=== PATIENT | male | born 1960 | race Caucasian/White ===

== ENCOUNTER 2019-07-16 00:44 | Inpatient (IN) | payer MEDICAID ==
[~2019-07-16] VITALS: Ht 165.1 cm; Wt 103.7 kg
[~2019-07-16 00:44] MED LIST: ASPI-831 PO; ASPI325T32 PO; ATOR20TA38 PO; BENA20TA65 PO; DOCU-144 PO; ENOX40DI2 SC; Folic Acid PO; HYDR-3498 PO; LANT3I SC; METF500T24 PO; METO-429 PO; MULTI PO; Metformin Hcl PO; PANT40TA4 PO; Thiamine Hcl PO
[2019-07-16 00:52] VITALS: Ht 165.1 cm; Wt 103.7 kg
[2019-07-16] MEDS ORDERED: AL HYDROX/MG HYDROX/SIMETH 30 ML CUP PO ONE (03:00)
[2019-07-16] MEDS ORDERED: ASPIRIN 325 MG TAB PO STA (03:48)
[2019-07-16] MEDS ORDERED: ENOXAPARIN 100 MG/ML SYG SC ONE (04:00)
[2019-07-16] MEDS ORDERED: DOCUSATE SODIUM 100 MG CAP PO PRN ×2 (04:30)
[2019-07-16] MEDS ORDERED: NACL 0.9% 3 ML SYG IV SCH (04:30)
[2019-07-16] MEDS ORDERED: ONDANSETRON 4 MG INJ IV PRN (04:30)
[2019-07-16] MEDS ORDERED: NITROGLYCERIN (SL) 0.4 MG TAB SL PRN (04:30)
[2019-07-16] MEDS ORDERED: ACETAMINOPHEN 325 MG TAB PO PRN (04:30)
[2019-07-16] MEDS ORDERED: HYDROCODONE/APAP (5/325) TAB PO PRN (04:30)
[2019-07-16] MEDS ORDERED: BISACODYL (EC) 5 MG TAB PO PRN (04:30)
[2019-07-16] MEDS ORDERED: DEXTROSE 50% 50 ML SYRINGE IV PRN ×2 (06:30)
[2019-07-16] MEDS ORDERED: GLUCOSE GEL 15 GRAM TUBE PO PRN ×2 (06:30)
[2019-07-16] MEDS ORDERED: GLUCOSE GEL 15 GRAM TUBE BUCCAL PRN (06:30)
[2019-07-16] MEDS ORDERED: GLUCAGON 1 MG INJ IM PRN (06:30)
[2019-07-16 08:05] VITALS: BP 108/80; PULSE 87; RESP 18
[2019-07-16] MEDS: INSULIN ASPART [NOVOLOG] 3 ML PEN SC SCH ×4 (09:00→20:11)
[2019-07-16] MEDS ORDERED: THIAMINE HCL 100 MG PO SCH (09:00)
[2019-07-16] MEDS ORDERED: FOLIC ACID 1 MG PO SCH (09:00)
[2019-07-16] MEDS: ASPIRIN 81 MG TAB PO SCH (09:58)
[2019-07-16 12:03] VITALS: BP 133/71; PULSE 72; RESP 18
[2019-07-16] MEDS: THIAMINE 100 MG TAB PO SCH (13:59)
[2019-07-16] MEDS: FOLIC ACID 1 MG TAB PO SCH (13:59)
[2019-07-16] MEDS: BENAZEPRIL 20 MG TAB PO SCH (13:59)
[2019-07-16 15:54] VITALS: BP 99/56; PULSE 65; RESP 18
[2019-07-16] MEDS ORDERED: ENOXAPARIN 60 MG/0.6 ML SYG SC SCH (16:00)
[2019-07-16] MEDS ORDERED: ENOXAPARIN 100 MG/ML SYG SC SCH (16:00)
[2019-07-16] MEDS: PANTOPRAZOLE (EC) 40 MG TAB PO SCH (19:55)
[2019-07-16] MEDS: ATORVASTATIN 20 MG TAB PO SCH ×2 (19:55→20:11)
[2019-07-16] MEDS: SOD CHLORIDE 0.9% 1,000 ML IV SCH ×2 (19:57→20:10)
[2019-07-16 20:01] VITALS: BP 116/62; PULSE 67; RESP 19
[2019-07-16] MEDS: ISOSORBIDE DINITRATE 10 MG TAB PO SCH (20:11)
[2019-07-17] VITALS (11 sets, daily range): BP systolic 113–146; BP diastolic 57–79; PULSE 62–89; RESP 16–22
[2019-07-17] MEDS: INSULIN ASPART [NOVOLOG] 3 ML PEN SC SCH ×4 (01:23→13:00)
[2019-07-17] MEDS ORDERED: ACCU-CHEK XX SCH (02:00)
[2019-07-17] MEDS: PANTOPRAZOLE (EC) 40 MG TAB PO SCH (06:03)
[2019-07-17] MEDS ORDERED: DIAZEPAM 5 MG TAB PO ONE (07:30)
[2019-07-17] MEDS ORDERED: DIPHENHYDRAMINE 50 MG CAP PO ONE (07:30)
[2019-07-17] MEDS: THIAMINE 100 MG TAB PO SCH (08:49)
[2019-07-17] MEDS: BENAZEPRIL 20 MG TAB PO SCH (08:49)
[2019-07-17] MEDS: ASPIRIN 81 MG TAB PO SCH (08:50)
[2019-07-17] MEDS: FOLIC ACID 1 MG TAB PO SCH (08:50)
[2019-07-17] MEDS: ISOSORBIDE DINITRATE 10 MG TAB PO SCH ×3 (08:50→20:07)
[2019-07-17] MEDS ORDERED: LIDOCAINE 1% (MDV) 20 ML INJ ONE (11:49)
[2019-07-17] MEDS ORDERED: IODIXANOL LOCM 100 ML BTL ONE (11:49)
[2019-07-17] MEDS ORDERED: HEPARIN 1000 UNITS/ML 10 ML INJ ONE (11:49)
[2019-07-17] MEDS ORDERED: NITROGLYCERIN (IC) 100 MCG/ML INJ ONE (11:50)
[2019-07-17] MEDS ORDERED: FENTAnyl 50 MCG/ML VIAL ONE (11:50)
[2019-07-17] MEDS ORDERED: VERAPAMIL 5 MG INJ ONE (11:50)
[2019-07-17] MEDS ORDERED: MIDAZOLAM 1 MG/ML 2 ML INJ ONE (11:50)
[2019-07-17] MEDS ORDERED: SOD CHLORIDE 0.9% 1,000 ML IV SCH (13:02)
[2019-07-17] MEDS: Insulin NOVOLOG SS MILD Algorithm (SS with meals and bedtime) SC SCH ×2 (17:19→20:09)
[2019-07-17] MEDS ORDERED: INSULIN ASPART [NOVOLOG] 3 ML PEN SC SCH (17:25)
[2019-07-17] MEDS: ATORVASTATIN 20 MG TAB PO SCH (20:06)
[2019-07-17] MEDS: ACCUCHECK AT 2AM (Patients on SS coverage) XX SCH (23:54)
[2019-07-18] VITALS: BP 127/58; PULSE 72; RESP 15
[2019-07-18 04:00] VITALS: BP 137/72; PULSE 71; RESP 18
[2019-07-18] MEDS: PANTOPRAZOLE (EC) 40 MG TAB PO SCH (05:08)
[2019-07-18 07:57] VITALS: BP 142/75; PULSE 73; RESP 20
[2019-07-18] MEDS: Insulin NOVOLOG SS MILD Algorithm (SS with meals and bedtime) SC SCH ×4 (08:15→21:45)
[2019-07-18] MEDS: ASPIRIN 81 MG TAB PO SCH (08:19)
[2019-07-18] MEDS: BENAZEPRIL 20 MG TAB PO SCH (08:20)
[2019-07-18] MEDS: FOLIC ACID 1 MG TAB PO SCH (08:20)
[2019-07-18] MEDS: ISOSORBIDE DINITRATE 10 MG TAB PO SCH ×3 (08:20→21:41)
[2019-07-18] MEDS: THIAMINE 100 MG TAB PO SCH (08:20)
[2019-07-18 16:18] VITALS: BP 160/79; PULSE 71; RESP 22
[2019-07-18 19:42] VITALS: BP 154/82; PULSE 65; RESP 20
[2019-07-18] MEDS: METOPROLOL 25 MG TAB PO SCH (21:40)
[2019-07-18] MEDS: ATORVASTATIN 20 MG TAB PO SCH (21:41)
[2019-07-19] VITALS: BP 136/69; PULSE 73; RESP 20
[2019-07-19] MEDS: ACCUCHECK AT 2AM (Patients on SS coverage) XX SCH (01:17)
[2019-07-19 04:00] VITALS: BP 129/65; PULSE 67; RESP 20
[2019-07-19] MEDS: PANTOPRAZOLE (EC) 40 MG TAB PO SCH (06:02)
[2019-07-19 07:21] VITALS: BP 132/77; PULSE 66; RESP 20
[2019-07-19] MEDS: BENAZEPRIL 20 MG TAB PO SCH (08:07)
[2019-07-19] MEDS: METOPROLOL 25 MG TAB PO SCH ×2 (08:07→21:51)
[2019-07-19] MEDS: ASPIRIN 81 MG TAB PO SCH (08:07)
[2019-07-19] MEDS: THIAMINE 100 MG TAB PO SCH (08:07)
[2019-07-19] MEDS: ISOSORBIDE DINITRATE 10 MG TAB PO SCH ×3 (08:07→21:51)
[2019-07-19] MEDS: FOLIC ACID 1 MG TAB PO SCH (08:07)
[2019-07-19] MEDS: Insulin NOVOLOG SS MILD Algorithm (SS with meals and bedtime) SC SCH ×4 (08:08→21:00)
[2019-07-19 12:00] VITALS: BP 136/68; PULSE 72; RESP 20
[2019-07-19 15:33] VITALS: BP 138/73; PULSE 64; RESP 20
[2019-07-19 19:50] VITALS: BP 150/77; PULSE 65; RESP 20
[2019-07-19] MEDS: ATORVASTATIN 20 MG TAB PO SCH (21:51)
[2019-07-20] VITALS (39 sets, daily range): BP systolic 92–180; BP diastolic 48–83; PULSE 62–111; RESP 12–22; TEMP 96.7–101.1
[2019-07-20] MEDS: ACCUCHECK AT 2AM (Patients on SS coverage) XX SCH (01:53)
[2019-07-20] MEDS: PANTOPRAZOLE (EC) 40 MG TAB PO SCH (06:10)
[2019-07-20] MEDS ORDERED: EPINEPHrine 4 MG in DEXTROSE 5% 246 ML IV SCH (06:30)
[2019-07-20] MEDS ORDERED: PHENYLephrine 20MG IN 250 ML 250 ML IV SCH (06:30)
[2019-07-20] MEDS ORDERED: INSULIN HUMAN REGULAR 100 UNIT in SOD CHLORIDE 0.9% 99 ML IV SCH (06:30)
[2019-07-20] MEDS ORDERED: DOPamine-D5W 1.6 MG/ML 250 ML ONE (07:00)
[2019-07-20] MEDS ORDERED: ISOFLURANE 15 MIN ONE (07:00)
[2019-07-20] MEDS ORDERED: INSULIN REGULAR, HUMAN 100 UNIT/1 ML 3ML VIAL ONE (07:00)
[2019-07-20] MEDS ORDERED: NITROGLYCERIN 50 MG/D5W 250 ML BTL ONE (07:00)
[2019-07-20] MEDS ORDERED: MILRINONE LACTATE 20 MG/D5W 100 ML BAG ONE (07:00)
[2019-07-20] MEDS: Insulin NOVOLOG SS MILD Algorithm (SS with meals and bedtime) SC SCH ×3 (07:05→17:05)
[2019-07-20] MEDS ORDERED: VANCOMYCIN 1 GM INJ ONE (07:22)
[2019-07-20] MEDS ORDERED: HEPARIN 1000 UNITS/ML 10 ML INJ ONE ×4 (07:22→10:09)
[2019-07-20] MEDS ORDERED: PAPAVERINE 60 MG INJ ONE (07:22)
[2019-07-20] MEDS ORDERED: SOD CHLORIDE 0.9% 1,000 ML IV SCH (07:30)
[2019-07-20] MEDS ORDERED: MIDAZOLAM 5 ML ONE ×2 (07:42→09:54)
[2019-07-20] MEDS ORDERED: LIDOCAINE 100 MG SYRINGE ONE (07:47)
[2019-07-20] MEDS ORDERED: AMINOCAPROIC ACID 5 GM INJ ONE ×3 (07:47→11:29)
[2019-07-20] MEDS ORDERED: PHENYLephrine 10 MG INJ ONE (07:47)
[2019-07-20] MEDS ORDERED: MAGNESIUM SULFATE (MG) 50% 10 ML INJ ONE (07:47)
[2019-07-20] MEDS ORDERED: POTASSIUM CHLORIDE 40 MEQ INJ ONE (07:47)
[2019-07-20] MEDS ORDERED: CA CHLORIDE 10% 10 ML SYRINGE ONE (07:49)
[2019-07-20] MEDS ORDERED: NA BICARBONATE 8.4% 50 ML SYG ONE (07:49)
[2019-07-20] MEDS ORDERED: ALBUMIN HUMAN 25% 200 ML ONE (07:49)
[2019-07-20] MEDS ORDERED: MANNITOL 25% 100 ML ONE (07:49)
[2019-07-20] MEDS ORDERED: CEFAZOLIN 1 GM INJ ONE ×2 (08:47→11:29)
[2019-07-20] MEDS: ISOSORBIDE DINITRATE 10 MG TAB PO SCH ×3 (09:00→22:13)
[2019-07-20] MEDS: ASPIRIN 81 MG TAB PO SCH (09:00)
[2019-07-20] MEDS: FOLIC ACID 1 MG TAB PO SCH (09:00)
[2019-07-20] MEDS: METOPROLOL 25 MG TAB PO SCH ×2 (09:00→21:36)
[2019-07-20] MEDS: THIAMINE 100 MG TAB PO SCH (09:00)
[2019-07-20] MEDS: BENAZEPRIL 20 MG TAB PO SCH (09:00)
[2019-07-20] MEDS ORDERED: FUROSEMIDE 20 MG INJ ONE (10:39)
[2019-07-20] MEDS ORDERED: PROTAMINE 250 MG INJ ONE (12:39)
[2019-07-20] MEDS ORDERED: ETOMIDATE 20 MG INJ ONE (12:39)
[2019-07-20] MEDS ORDERED: ROCURONIUM 50 MG INJ ONE ×2 (12:39)
[2019-07-20] MEDS ORDERED: LIDOCAINE 2% (SDV) 5 ML INJ ONE (12:39)
[2019-07-20] MEDS ORDERED: MAGNESIUM SULFATE 2 GM/50 ML 50 ML IVPB ONE (14:00)
[2019-07-20] MEDS ORDERED: MEPERIDINE 25 MG INJ IV PRN (14:30)
[2019-07-20] MEDS ORDERED: LORAZEPAM 2 MG INJ IV PRN (14:30)
[2019-07-20] MEDS ORDERED: hydrALAzine 20 MG INJ ONE (14:30)
[2019-07-20] MEDS ORDERED: morphine 2 MG INJ IV PRN ×2 (14:30)
[2019-07-20] MEDS ORDERED: hydrALAzine 20 MG INJ IV PRN (14:30)
[2019-07-20] MEDS ORDERED: METOCLOPRAMIDE 10 MG INJ IV PRN (14:30)
[2019-07-20] MEDS ORDERED: DIPHENHYDRAMINE 50 MG INJ IV PRN (14:30)
[2019-07-20] MEDS ORDERED: FENTAnyl 50 MCG/ML VIAL IV PRN (14:30)
[2019-07-20] MEDS ORDERED: ONDANSETRON 4 MG INJ IV PRN (14:30)
[2019-07-20] MEDS ORDERED: PROPOFOL 100 ML ONE (14:51)
[2019-07-20] MEDS: morphine 2 MG INJ IV PRN ×2 (14:56→20:54)
[2019-07-20] MEDS ORDERED: DOPamine-D5W 1.6 MG/ML 250 ML IV SCH (15:00)
[2019-07-20] MEDS ORDERED: NITROGLYCERIN 50 MG/D5W (PMX) 250 ML IV SCH ×3 (15:00)
[2019-07-20] MEDS: PROPOFOL 100 ML IV SCH (15:15)
[2019-07-20] MEDS: POTASSIUM CHLORIDE 50 ML IVPB PRN ×2 (15:17→16:20)
[2019-07-20] MEDS ORDERED: MAGNESIUM SULFATE 2 GM/50 ML 50 ML IVPB PRN (15:30)
[2019-07-20] MEDS: POTASSIUM CHLORIDE 40 MEQ, CALCIUM CHLORIDE 10% 1 GM in DEXTROSE 5%-0.225% NACL 1,000 ML IV SCH (17:46)
[2019-07-20] MEDS ORDERED: INSULIN HUMAN REGULAR 100 UNIT in SOD CHLORIDE 0.9% 99 ML IV STA (18:59)
[2019-07-20] MEDS: ACCU-CHEK XX SCH ×5 (19:00→23:14)
[2019-07-20] MEDS ORDERED: DEXTROSE 50% 50 ML SYRINGE IV PRN ×2 (19:00)
[2019-07-20] MEDS: INSULIN HUMAN REGULAR 100 UNIT in SOD CHLORIDE 0.9% 99 ML IV SCH (20:01)
[2019-07-20] MEDS: ATORVASTATIN 20 MG TAB PO SCH (21:36)
[2019-07-20] MEDS: ACETAMINOPHEN 325 MG TAB PO PRN (22:13)
[2019-07-20] MEDS: ONDANSETRON 4 MG INJ IV PRN (22:38)
[2019-07-20] MEDS: OXYCODONE/ACETAMINOPHEN (5/325) TAB PO PRN (23:30)
[2019-07-21] VITALS (66 sets, daily range): BP systolic 78–139; BP diastolic 42–84; PULSE 74–96; RESP 11–26; TEMP 98.4–100.8
[2019-07-21] MEDS ORDERED: PHENYLephrine 20MG IN 250 ML 250 ML IV SCH (00:30)
[2019-07-21] MEDS: POTASSIUM CHLORIDE 50 ML IVPB PRN (01:06)
[2019-07-21] MEDS: ACCU-CHEK XX SCH ×24 (01:12→22:56)
[2019-07-21] MEDS: ACCUCHECK AT 2AM (Patients on SS coverage) XX SCH (02:00)
[2019-07-21] MEDS: PROPOFOL 100 ML IV SCH (03:00)
[2019-07-21] MEDS: OXYCODONE/ACETAMINOPHEN (5/325) TAB PO PRN ×2 (06:01→17:18)
[2019-07-21] MEDS: PANTOPRAZOLE (EC) 40 MG TAB PO SCH (06:01)
[2019-07-21] MEDS: ALBUMIN HUMAN 5% 250 ML IV SCH ×2 (06:03→07:04)
[2019-07-21] MEDS: ONDANSETRON 4 MG INJ IV PRN (07:09)
[2019-07-21] MEDS: THIAMINE 100 MG TAB PO SCH (08:43)
[2019-07-21] MEDS: FOLIC ACID 1 MG TAB PO SCH (08:43)
[2019-07-21] MEDS: ASPIRIN 81 MG TAB PO SCH (08:43)
[2019-07-21] MEDS: ISOSORBIDE DINITRATE 10 MG TAB PO SCH ×3 (09:00→22:06)
[2019-07-21] MEDS: ACETAMINOPHEN 325 MG TAB PO PRN (09:07)
[2019-07-21] MEDS: morphine 2 MG INJ IV PRN (09:30)
[2019-07-21] MEDS ORDERED: TRIMETHOBENZAMIDE 100 MG/ML VIAL IM PRN (10:00)
[2019-07-21] MEDS: POTASSIUM CHLORIDE 40 MEQ, CALCIUM CHLORIDE 10% 1 GM in DEXTROSE 5%-0.225% NACL 1,000 ML IV SCH (10:23)
[2019-07-21] MEDS ORDERED: ONDANSETRON 4 MG INJ IV PRN (10:30)
[2019-07-21] MEDS ORDERED: ONDANSETRON INJ 8 MG in SOD CHLORIDE 0.9% 50 ML IV PRN ×4 (10:30)
[2019-07-21] MEDS: METOPROLOL 25 MG TAB PO SCH ×2 (10:49→20:59)
[2019-07-21] MEDS: INSULIN HUMAN REGULAR 100 UNIT in SOD CHLORIDE 0.9% 99 ML IV SCH (17:32)
[2019-07-21] MEDS: ATORVASTATIN 20 MG TAB PO SCH (20:59)
[2019-07-22] VITALS (24 sets, daily range): BP systolic 108–157; BP diastolic 64–83; PULSE 78–102; RESP 12–22
[2019-07-22] MEDS: morphine 2 MG INJ IV PRN ×3 (00:31→20:04)
[2019-07-22] MEDS: ACCU-CHEK XX SCH ×12 (01:07→11:00)
[2019-07-22] MEDS: ACCUCHECK AT 2AM (Patients on SS coverage) XX SCH (02:00)
[2019-07-22] MEDS: POTASSIUM CHLORIDE 40 MEQ, CALCIUM CHLORIDE 10% 1 GM in DEXTROSE 5%-0.225% NACL 1,000 ML IV SCH (05:00)
[2019-07-22] MEDS: PANTOPRAZOLE (EC) 40 MG TAB PO SCH (06:20)
[2019-07-22] MEDS: THIAMINE 100 MG TAB PO SCH (09:10)
[2019-07-22] MEDS: ISOSORBIDE DINITRATE 10 MG TAB PO SCH ×3 (09:10→20:16)
[2019-07-22] MEDS: ASPIRIN 81 MG TAB PO SCH (09:10)
[2019-07-22] MEDS: FOLIC ACID 1 MG TAB PO SCH (09:10)
[2019-07-22] MEDS: METOPROLOL 25 MG TAB PO SCH (09:11)
[2019-07-22] MEDS: INSULIN ASPART [NOVOLOG] 3 ML PEN SC SCH ×5 (12:11→20:15)
[2019-07-22] MEDS ORDERED: FUROSEMIDE 40 MG INJ IV ONE (13:00)
[2019-07-22] MEDS ORDERED: hydrALAzine 20 MG INJ IV PRN (13:00)
[2019-07-22] MEDS ORDERED: INSULIN GLARGINE [LANTus] (100 UNITS/ML) SYG SC SCH (20:00)
[2019-07-22] MEDS: ATORVASTATIN 20 MG TAB PO SCH (20:15)
[2019-07-22] MEDS: METOPROLOL 50 MG TAB PO SCH (20:17)
[2019-07-23] VITALS (21 sets, daily range): BP systolic 101–160; BP diastolic 65–87; PULSE 72–89; RESP 12–29
[2019-07-23] MEDS: ACCU-CHEK XX SCH (01:30)
[2019-07-23] MEDS: ACCUCHECK AT 2AM (Patients on SS coverage) XX SCH (01:30)
[2019-07-23] MEDS: PANTOPRAZOLE (EC) 40 MG TAB PO SCH (06:19)
[2019-07-23] MEDS: INSULIN ASPART [NOVOLOG] 3 ML PEN SC SCH ×7 (07:35→20:47)
[2019-07-23] MEDS: THIAMINE 100 MG TAB PO SCH (08:29)
[2019-07-23] MEDS: FUROSEMIDE 40 MG INJ IV SCH (08:29)
[2019-07-23] MEDS: METOPROLOL 50 MG TAB PO SCH ×2 (08:29→20:46)
[2019-07-23] MEDS: FOLIC ACID 1 MG TAB PO SCH (08:29)
[2019-07-23] MEDS: ISOSORBIDE DINITRATE 10 MG TAB PO SCH ×3 (08:30→20:47)
[2019-07-23] MEDS: ASPIRIN 81 MG TAB PO SCH (08:30)
[2019-07-23] MEDS: OXYCODONE/ACETAMINOPHEN (5/325) TAB PO PRN (08:30)
[2019-07-23] MEDS: morphine 2 MG INJ IV PRN (17:55)
[2019-07-23] MEDS: ATORVASTATIN 20 MG TAB PO SCH (20:47)
[2019-07-23] MEDS ORDERED: INSULIN ASPART [NOVOLOG] 3 ML PEN SC ONE (22:00)
[2019-07-23] MEDS ORDERED: ACCU-CHEK XX ONE (22:00)
[2019-07-23] MEDS: INSULIN GLARGINE [LANTus] (100 UNITS/ML) SYG SC SCH (22:33)
[2019-07-24] MEDS: ACCU-CHEK XX SCH (01:56)
[2019-07-24 03:41] VITALS: BP 140/71; PULSE 83; RESP 20
[2019-07-24] MEDS: PANTOPRAZOLE (EC) 40 MG TAB PO SCH (03:54)
[2019-07-24] MEDS: morphine 2 MG INJ IV PRN ×4 (03:55→19:06)
[2019-07-24 07:28] VITALS: BP 137/70; PULSE 81; RESP 16
[2019-07-24] MEDS: INSULIN ASPART [NOVOLOG] 3 ML PEN SC SCH ×7 (08:52→20:47)
[2019-07-24] MEDS: FUROSEMIDE 40 MG INJ IV SCH (08:54)
[2019-07-24] MEDS: ASPIRIN 81 MG TAB PO SCH (08:55)
[2019-07-24] MEDS: FOLIC ACID 1 MG TAB PO SCH (08:55)
[2019-07-24] MEDS: ISOSORBIDE DINITRATE 10 MG TAB PO SCH ×3 (08:55→20:45)
[2019-07-24] MEDS: BENAZEPRIL 5 MG TAB PO SCH (08:55)
[2019-07-24] MEDS: THIAMINE 100 MG TAB PO SCH (08:55)
[2019-07-24] MEDS: METOPROLOL 50 MG TAB PO SCH ×2 (08:55→20:46)
[2019-07-24 12:00] VITALS: BP 125/65; PULSE 73
[2019-07-24 16:00] VITALS: BP 120/63; PULSE 80; RESP 16
[2019-07-24 19:12] VITALS: BP 132/72; PULSE 94; RESP 20
[2019-07-24] MEDS: ATORVASTATIN 20 MG TAB PO SCH (20:45)
[2019-07-24] MEDS: INSULIN GLARGINE [LANTus] (100 UNITS/ML) SYG SC SCH (20:54)
[2019-07-24 23:42] VITALS: BP 137/73; PULSE 74; RESP 22
[2019-07-25] MEDS: morphine 2 MG INJ IV PRN ×4 (02:00→19:04)
[2019-07-25] MEDS: ACCU-CHEK XX SCH (02:00)
[2019-07-25 04:00] VITALS: BP 118/56; PULSE 79; RESP 20
[2019-07-25] MEDS: PANTOPRAZOLE (EC) 40 MG TAB PO SCH (06:42)
[2019-07-25 07:14] VITALS: BP 150/73; PULSE 68; RESP 16
[2019-07-25] MEDS: INSULIN ASPART [NOVOLOG] 3 ML PEN SC SCH ×7 (07:55→20:10)
[2019-07-25] MEDS: FOLIC ACID 1 MG TAB PO SCH (08:24)
[2019-07-25] MEDS: THIAMINE 100 MG TAB PO SCH (08:24)
[2019-07-25] MEDS: ASPIRIN 81 MG TAB PO SCH (08:24)
[2019-07-25] MEDS: METOPROLOL 50 MG TAB PO SCH ×2 (08:25→20:09)
[2019-07-25] MEDS: FUROSEMIDE 40 MG INJ IV SCH (08:25)
[2019-07-25] MEDS: BENAZEPRIL 5 MG TAB PO SCH (08:26)
[2019-07-25] MEDS: ISOSORBIDE DINITRATE 10 MG TAB PO SCH ×3 (08:26→20:09)
[2019-07-25 11:12] VITALS: BP 118/61; PULSE 88; RESP 18
[2019-07-25 15:08] VITALS: BP 148/88; PULSE 88; RESP 18
[2019-07-25] MEDS: ATORVASTATIN 20 MG TAB PO SCH (20:09)
[2019-07-25 20:15] VITALS: BP 173/90; PULSE 85; RESP 19
[2019-07-25 20:30] VITALS: BP 164/87; PULSE 86
[2019-07-25] MEDS: INSULIN GLARGINE [LANTus] (100 UNITS/ML) SYG SC SCH (20:30)
[2019-07-26] VITALS: BP 137/65; PULSE 77; RESP 18
[2019-07-26] MEDS: morphine 2 MG INJ IV PRN ×6 (00:39→22:52)
[2019-07-26] MEDS: ACCU-CHEK XX SCH (02:00)
[2019-07-26 03:50] VITALS: BP 143/77; PULSE 84; RESP 20
[2019-07-26] MEDS: PANTOPRAZOLE (EC) 40 MG TAB PO SCH (05:46)
[2019-07-26 07:36] VITALS: BP 150/76; PULSE 80; RESP 18
[2019-07-26] MEDS: INSULIN ASPART [NOVOLOG] 3 ML PEN SC SCH ×7 (07:55→20:54)
[2019-07-26] MEDS: ISOSORBIDE DINITRATE 10 MG TAB PO SCH ×3 (08:07→20:53)
[2019-07-26] MEDS: METOPROLOL 50 MG TAB PO SCH ×2 (08:07→20:53)
[2019-07-26] MEDS: FOLIC ACID 1 MG TAB PO SCH (08:07)
[2019-07-26] MEDS: THIAMINE 100 MG TAB PO SCH (08:07)
[2019-07-26] MEDS: BENAZEPRIL 5 MG TAB PO SCH (08:07)
[2019-07-26] MEDS: ASPIRIN 81 MG TAB PO SCH (08:07)
[2019-07-26] MEDS: FUROSEMIDE 40 MG INJ IV SCH (08:07)
[2019-07-26 11:53] VITALS: BP 101/56; PULSE 76; RESP 17
[2019-07-26 15:57] VITALS: BP 127/78; PULSE 78; RESP 20
[2019-07-26 19:37] VITALS: BP 149/78; PULSE 80; RESP 19
[2019-07-26] MEDS: ATORVASTATIN 20 MG TAB PO SCH (20:54)
[2019-07-26] MEDS: INSULIN GLARGINE [LANTus] (100 UNITS/ML) SYG SC SCH (21:04)
[2019-07-27] VITALS: BP 137/68; PULSE 79; RESP 18
[2019-07-27] MEDS: ACCU-CHEK XX SCH (02:47)
[2019-07-27] MEDS: morphine 2 MG INJ IV PRN ×2 (03:10→20:30)
[2019-07-27 03:34] VITALS: BP 148/72; PULSE 77; RESP 18
[2019-07-27] MEDS: PANTOPRAZOLE (EC) 40 MG TAB PO SCH (05:38)
[2019-07-27 07:41] VITALS: BP 148/74; PULSE 79; RESP 18
[2019-07-27] MEDS: INSULIN ASPART [NOVOLOG] 3 ML PEN SC SCH ×7 (07:55→20:36)
[2019-07-27] MEDS: OXYCODONE/ACETAMINOPHEN (5/325) TAB PO PRN (08:20)
[2019-07-27] MEDS: FOLIC ACID 1 MG TAB PO SCH (08:20)
[2019-07-27] MEDS: BENAZEPRIL 5 MG TAB PO SCH (08:20)
[2019-07-27] MEDS: METOPROLOL 50 MG TAB PO SCH ×2 (08:21→20:24)
[2019-07-27] MEDS: THIAMINE 100 MG TAB PO SCH (08:21)
[2019-07-27] MEDS: ASPIRIN 81 MG TAB PO SCH (08:21)
[2019-07-27] MEDS: ISOSORBIDE DINITRATE 10 MG TAB PO SCH ×4 (08:21→20:20)
[2019-07-27] MEDS: FUROSEMIDE 40 MG INJ IV SCH (08:22)
[2019-07-27 12:16] VITALS: BP 103/56; PULSE 70; RESP 18
[2019-07-27 15:44] VITALS: BP 159/74; PULSE 73; RESP 18
[2019-07-27] MEDS: ACETAMINOPHEN 325 MG TAB PO PRN (16:44)
[2019-07-27 20:00] VITALS: BP_SYST 139; BP_SYST 148; BP_DIAS 65; BP_DIAS 67; PULSE 81; PULSE 88; RESP 19
[2019-07-27] MEDS: ATORVASTATIN 20 MG TAB PO SCH (20:23)
[2019-07-27] MEDS: INSULIN GLARGINE [LANTus] (100 UNITS/ML) SYG SC SCH (20:35)
[2019-07-28 00:10] VITALS: BP 121/63; PULSE 67; RESP 18
[2019-07-28] MEDS: ACCU-CHEK XX SCH (02:00)
[2019-07-28 04:00] VITALS: BP 143/72; PULSE 73; RESP 19
[2019-07-28] MEDS: PANTOPRAZOLE (EC) 40 MG TAB PO SCH (06:20)
[2019-07-28 07:39] VITALS: BP 157/79; PULSE 80; RESP 18
[2019-07-28] MEDS: INSULIN ASPART [NOVOLOG] 3 ML PEN SC SCH ×4 (07:55→12:49)
[2019-07-28] MEDS: ACETAMINOPHEN 325 MG TAB PO PRN ×2 (08:52→16:56)
[2019-07-28] MEDS: ISOSORBIDE DINITRATE 10 MG TAB PO SCH ×2 (08:53→12:04)
[2019-07-28] MEDS: THIAMINE 100 MG TAB PO SCH (08:53)
[2019-07-28] MEDS: FOLIC ACID 1 MG TAB PO SCH (08:54)
[2019-07-28] MEDS: ASPIRIN 81 MG TAB PO SCH (08:54)
[2019-07-28] MEDS: METOPROLOL 50 MG TAB PO SCH (08:55)
[2019-07-28] MEDS: FUROSEMIDE 40 MG INJ IV SCH (08:55)
[2019-07-28] MEDS ORDERED: BENAZEPRIL 5 MG TAB PO SCH (09:00)
[2019-07-28 11:52] VITALS: BP 92/57; PULSE 67; RESP 18
[2019-07-28 15:58] VITALS: BP 143/71; PULSE 71; RESP 20
== END 2019-07-28 17:45 | disposition home or self-care (01) | DRG 234 ==
LOC: E/R 00:44 → 6WM 04:08 → TEL 07-17 09:07 → ICU 07-20 06:51 → TEL 07-23 18:28
PROVIDERS: ADMIT Family Medicine; ATTEND Internal Medicine
PROC: 4A023N7 Measurement of Cardiac Sampling and Pressure, Left Heart, Percutaneous Approach (ICD-10-PCS; 2019-07-16)
PROC: B211YZZ Fluoroscopy of Multiple Coronary Arteries using Other Contrast (ICD-10-PCS; 2019-07-16)
PROC: 02100Z9 Bypass Coronary Artery, One Artery from Left Internal Mammary, Open Approach (ICD-10-PCS; 2019-07-20)
PROC: 06BQ0ZZ Excision of Left Saphenous Vein, Open Approach (ICD-10-PCS; 2019-07-20)
PROC: 5A1221Z Performance of Cardiac Output, Continuous (ICD-10-PCS; 2019-07-20)
PROC: 5A1223Z Performance of Cardiac Pacing, Continuous (ICD-10-PCS; 2019-07-20)
PROC: 30233K1 Transfusion of Nonautologous Frozen Plasma into Peripheral Vein, Percutaneous Approach (ICD-10-PCS; 2019-07-20)
PROC: 30233N1 Transfusion of Nonautologous Red Blood Cells into Peripheral Vein, Percutaneous Approach (ICD-10-PCS; 2019-07-20)
PROC: 30233R1 Transfusion of Nonautologous Platelets into Peripheral Vein, Percutaneous Approach (ICD-10-PCS; 2019-07-20)
PROC: 021209W Bypass Coronary Artery, Three Arteries from Aorta with Autologous Venous Tissue, Open Approach (ICD-10-PCS; principal; 2019-07-20 07:30)
DX: I21.4 Non-ST elevation (NSTEMI) myocardial infarction (principal); N17.9 Acute kidney failure, unspecified; I42.9 Cardiomyopathy, unspecified; E87.1 Hypo-osmolality and hyponatremia; D64.9 Anemia, unspecified; E66.9 Obesity, unspecified; E11.9 Type 2 diabetes mellitus without complications; E78.5 Hyperlipidemia, unspecified; E87.70 Fluid overload, unspecified; I10 Essential (primary) hypertension; K21.9 Gastro-esophageal reflux disease without esophagitis; R10.13 Epigastric pain; R05 Cough; Z68.38 Body mass index [BMI] 38.0-38.9, adult; Z87.891 Personal history of nicotine dependence; Z79.84 Long term (current) use of oral hypoglycemic drugs; Z79.82 Long term (current) use of aspirin; Z79.01 Long term (current) use of anticoagulants
CPT/HCPCS: 36415; 36430; 36592; 36600; 71045; 76705; 80048; 80053; 80061; 81001; 82550; 82553; 82803; 82962; 83036; 83690; 83735; 84100; 84443; 84484; 85025; 85610; 85730; 86850; 86900; 86901; 86920; 86945; 87081; 93005; 93306; 93312; 93325; 93458; 93880; 93970; 94002; 94770; 97110; 97116; 97162; 97167; 97530; 97535; C1887; J0360; J0690; J1265; J1644; J1650; J1815; J1940; J2001; J2150; J2250; J2260; J2270; J2370; J2405; J2440; J2720; J3010; J3370; J3475; J3480; J7030; P9016; P9035; P9045; P9047; P9059; Q9967